=== PATIENT | male | born 1990 | race Caucasian/White ===

== ENCOUNTER 2021-05-18 13:44 | Emergency (ER) | payer MEDICARE, MEDICAID ==
--- NOTE | 2021-05-18 15:02 | EDM.PDOC ---
ED HPI GENERAL MEDICAL PROBLEM - General Chief Complaint: Back Pain or Injury Stated Complaint: PUSS COMING OUT OF INCISION Time Seen by Provider: 05/18/21 14:32 Source of Information: Reports: Patient History Limitations: Reports: No Limitations - History of Present Illness INITIAL COMMENTS - FREE TEXT/NARRATIVE: Patient presents with increasing pain along his back incision and "pus draining". No fever. He says, two weeks ago, he had hardware removal and replacement. He was supposed to have angelina out today. Lower Back Pain Score (Numeric/FACES): 9 - Related Data Allergies Allergy/AdvReac Type Severity Reaction Status Date / Time No Known Drug Allergies Allergy Other Verified 05/18/21 13:54 Home Meds: Home Meds . [No Known Home Meds] 05/29/14 [History] Past Medical History - Past Health History Medical/Surgical History: Denies Medical/Surgical History Social & Family History - Living Situation & Occupation Living situation: Reports: with Significant Other ED ROS GENERAL - Review of Systems Review Of Systems: See Below Constitutional: Denies: Fever, Chills HEENT: Denies: Ear Pain, Throat Pain, Vision Change Respiratory: Denies: Shortness of Breath, Cough Cardiovascular: Denies: Chest Pain, Lightheadedness, Syncope GI/Abdominal: Reports: No Symptoms : Reports: No Symptoms Musculoskeletal: Reports: Back Pain. Denies: Neck Pain, Shoulder Pain, Arm Pain Skin: Denies: Cyanosis, Jaundice, Mottled, Pallor, Diaphoresis Neurological: Denies: Confusion, Dizziness, Headache, Seizure, Syncope Psychiatric: Denies: Agitation, Anxiety ED EXAM,LOWER BACK PAIN/INJURY - Physical Exam Exam: See Below Exam Limited By: No Limitations General Appearance: Alert, WD/WN, No Apparent Distress Eye Exam: Bilateral Eye: EOMI, Normal Inspection, PERRL Ears: Normal External Exam, Hearing Grossly Normal Nose: Normal Inspection, No Blood Throat/Mouth: Normal Inspection, Normal Lips, Normal Voice, No Airway Compromise Head: Atraumatic, Normocephalic Neck: Normal Inspection, Full Range of Motion Respiratory/Chest: No Respiratory Distress, Lungs Clear, Normal Breath Sounds Cardiovascular: Regular Rate, Rhythm, No Murmur Back Exam: Other (There is a vertical mid-line incision along the lumbar to mid- thoracic region currently approximated with roughly 70 angelina. In the lower 1/3 of this there are two spots with drainage and increased erythema. I swabbed the drainage for culture after removing the bandage.) Neurological: Alert, Normal Mood/Affect Psychiatric: Normal Affect, Normal Mood Skin Exam: Warm, Dry, Intact, Normal Color, No Rash Course - Vital Signs Last Recorded V/S: Last Vital Signs Temp 97.4 F 05/18/21 13:49 Pulse 126 H 05/18/21 13:49 Resp 18 05/18/21 13:49 BP 94/73 05/18/21 13:49 Pulse Ox 97 05/18/21 13:49 - Orders/Labs/Meds Labs: Laboratory Tests 05/18/21 Range/Units 15:28 WBC 7.81 (5.00-10.00) 10^3/uL RBC 4.38 L (4.50-6.00) 10^6/uL Hgb 12.4 L (13.0-17.0) g/dL Hct 37.8 L (40.0-52.0) % MCV 86.3 D (82.0-92.0) fL MCH 28.3 (27.0-31.0) pg MCHC 32.8 (32.0-36.0) g/dL RDW 13.0 (11.5-14.5) % Plt Count 398 (150-400) 10^3/uL MPV 9.2 (7.4-10.4) fL Immature Gran % (Auto) 0.0 (0.0-5.0) % Neut % (Auto) 68.6 (50.0-70.0) % Lymph % (Auto) 21.9 (20.0-40.0) % Lares % (Auto) 7.8 (2.0-8.0) % Eos % (Auto) 1.2 (1.0-3.0) % Baso % (Auto) 0.5 (0.0-1.0) % Neut # (Auto) 5.36 (2.50-7.00) 10^3/uL Lymph # (Auto) 1.71 (1.00-4.00) 10^3/uL Lares # (Auto) 0.61 (0.10-0.80) 10^3/uL Eos # (Auto) 0.09 L (0.10-0.30) 10^3/uL Baso # (Auto) 0.04 (0.00-0.10) 10^3/uL Immature Gran # (Auto) 0.00 (0.00-0.50) 10^3/uL Meds: Medications Discontinued Medications Generic Name Dose Route Start Last Admin Trade Name Syeda PRN Reason Stop Dose Admin Doxycycline Hyclate 200 mg 05/18/21 15:31 05/18/21 15:53 Doxycycline 50 Mg Cap PO 05/18/21 15:32 200 mg ONETIME ONE Administration Ketorolac Tromethamine 60 mg 05/18/21 15:31 05/18/21 15:48 Ketorolac 60 Mg/2 Ml Sdv IM 05/18/21 15:32 60 mg ONETIME ONE Administration Ketorolac Tromethamine 20 mg 05/18/21 17:07 Ketorolac 10 Mg Tab PO 05/18/21 17:08 ONETIME ONE - Re-Assessments/Exams Free Text/Narrative Re-Assessment/Exam: 05/18/21 15:33 Discussed case with [facility] neurosurgeon Dr. Pemberton who advised doxycycline now and see him in clinic tomorrow morning between 9-noon. Discussed findings and recommendations with patient. He is concerned about the pain of traveling to [place] tomorrow. Will give Toradol and Doxycycline now and he will try to find someone to drive him tomorrow. Departure - Departure Time of Disposition: 17:10 Disposition: Home, Self-Care 01 Condition: Good Clinical Impression: Incisional infection - Discharge Information Instructions: Wound Infection, [id number] Referrals: Lisa Hurtado MD [Primary Care Provider] - Forms: ED Department Discharge Additional Instructions: Take the antibiotic and pain medication as directed. Drink 8 cups of water daily. Go to [place] to see your neurosurgeon tomorrow morning as we discussed. He will expect you between 9:00-12:00. Have a friend or family member drive you there. Sepsis Event Note (ED) - Evaluation Sepsis Screening Result: No Definite Risk - Focused Exam Vital Signs: Vital Signs Temp Pulse Resp BP Pulse Ox 05/18/21 13:49 97.4 F 126 H 18 94/73 97
[2021-05-18] MEDS ORDERED: Ketorolac 60 MG/2 ML SDV IM ONE (15:31)
[2021-05-18] MEDS ORDERED: Ketorolac 10 MG Tab PO ONE (17:07)
== END 2021-05-18 17:27 | disposition home or self-care (01) ==
LOC: KA.ED 13:44
DX: T81.40XA Infection following a procedure, unspecified, initial encounter (principal)
CPT/HCPCS: 36415; 85025; 87070; 87186; 87205; 96372; 99283; A9270-GY; J1885

== ENCOUNTER 2023-11-27 18:34 | Emergency (ER) | payer MEDICARE, MEDICAID ==
[2023-11-27] MEDS: Ketorolac 30 MG/ML SDV IVPUSH ONE (19:19)
[2023-11-27 19:34] LABS: BASOPHILS ABSOLUTE AUTO 0.03 10^3/uL (0.00-0.10); BASOPHILS PERCENT AUTO 0.2 % (0.0-1.0); EOSINOPHILS ABSOLUTE AUTO 0.03 10^3/uL (0.10-0.30); EOSINOPHILS PERCENT AUTO 0.2 % (1.0-3.0); HEMATOCRIT 44.1 % (40.0-52.0); HEMOGLOBIN 14.5 g/dL (13.0-17.0); IMMATURE GRAN ABSOLUTE AUTO 0.03 10^3/uL (0.00-0.50); IMMATURE GRAN PERCENT AUTO 0.2 % (0.0-5.0); LYMPHOCYTES ABSOLUTE AUTO 1.45 10^3/uL (1.00-4.00); LYMPHOCYTES PERCENT AUTO 8.9 % (20.0-40.0); MEAN CORPUSCULAR HEMOGLOBIN 28.1 pg (27.0-31.0); MEAN CORPUSCULAR HGB CONC 32.9 g/dL (32.0-36.0); MEAN CORPUSCULAR VOLUME 85.5 fL (82.0-92.0); MONOCYTES ABSOLUTE AUTO 1.03 10^3/uL (0.10-0.80); MONOCYTES PERCENT AUTO 6.3 % (2.0-8.0); NEUTROPHILS ABSOLUTE AUTO 13.74 10^3/uL (2.50-7.00); NEUTROPHILS PERCENT AUTO 84.2 % (50.0-70.0); PLATELET COUNT,PLT 362 10^3/uL (150-400); RED BLOOD CELL COUNT 5.16 10^6/uL (4.50-6.00); WHITE BLOOD CELL COUNT,WBC 16.31 10^3/uL (5.00-10.00)
[2023-11-27 19:51] LABS: ALBUMIN 3.25 g/dL (3.40-5.00); ANION GAP 12.9 mmol/L (5-15); BILIRUBIN TOTAL 0.9 mg/dL (0.2-1.0); C-REACTIVE PROTEIN 18.31 mg/dL (0.00-0.50); CALCIUM 8.8 mg/dL (8.7-10.3); CREATININE 0.81 mg/dL (0.51-1.17); EST CRCL DRUG DOSING (CG) 148.36 mL/min; POTASSIUM,K 3.9 mmol/L (3.5-5.1); PROTEIN TOTAL,TP 7.8 g/dL (6.4-8.2)
[2023-11-27] MEDS: HYDROmorphone 1 MG/ML Syringe IVPUSH ONE (20:15)
[2023-11-27] MEDS ORDERED: Sodium Chloride 0.9% 100 ML ONE (20:29)
[2023-11-27] MEDS: VANCOmycin 1.5 GM/300 ML 1.5 GM in Premix Bag 1 BAG IV ONE (20:36)
== END 2023-11-27 22:05 ==
LOC: KA.ED 18:34
DX: L89.159 Pressure ulcer of sacral region, unspecified stage (principal); A18.01 Tuberculosis of spine; D72.828 Other elevated white blood cell count; Z86.14 Personal history of Methicillin resistant Staphylococcus aureus infection
CPT/HCPCS: 36415; 72192; 80053; 83605; 85025; 86140; 87070; 87075; 87186; 87205; 96365; 96375; 99284; 99284-25; J1170; J1885; J3370